=== PATIENT | female | born 1955 | race Hispanic/Latino ===

== ENCOUNTER 2018-02-16 12:25 | Outpatient (CLI) | payer BC | END 2018-02-16 12:26 | disposition home or self-care (01) | LOC: BICMAMMO 12:25 | PROVIDERS: ATTEND Student in an Organized Health Care Education/Training Program | DX: Z12.31 Encounter for screening mammogram for malignant neoplasm of breast (principal); Z80.3 Family history of malignant neoplasm of breast | CPT/HCPCS: 77063; 77067 ==

== ENCOUNTER 2018-03-16 15:34 | Outpatient (CLI) | payer OTHER | END 2018-03-16 15:35 | disposition home or self-care (01) | LOC: DTY/OP 15:34 | PROVIDERS: ATTEND Specialist | DX: Z01.818 Encounter for other preprocedural examination (principal); E66.01 Morbid (severe) obesity due to excess calories | CPT/HCPCS: 97802 ==

== ENCOUNTER 2018-05-12 12:18 | Outpatient (CLI) | payer BC ==
[2018-05-12 14:03] LABS: #Eosinphils 0.1 thou/uL (0.0-0.7); #Lymphocytes 1.3 thou/uL (1.20-3.40); #Monocytes 0.5 thou/uL (0.11-0.59); #Neutrophils 4.8 thou/uL (1.40-6.50); %Basophils 0.2 % (0.0-1.0); %Monocytes 7.2 % (0.0-10.0); %Neutrophils 71.7 % (42.0-75.0); Hemoglobin 12.5 g/dL (12.0-16.0); Mean Corpuscular HGB CONC 33.6 g/dL (32.0-36.0); Mean Corpuscular Hemoglobin 29.7 pg (27.0-31.0); Mean Corpuscular Volume 88.4 fL (78.0-98.0); Mean Platelet Volume 8.4 fL (7.4-10.4); Platelet Count 186 thou/uL (130-400); RBC Distribution Width 12.8 % (11.5-14.5); Red Blood Cell (RBC) Count 4.23 mill/uL (4.20-5.40); White Blood Cell (WBC) Count 6.6 thou/uL (4.8-10.8)
== END 2018-05-12 12:19 | disposition home or self-care (01) ==
LOC: LABBT 12:18
PROVIDERS: ATTEND Specialist
DX: Z01.818 Encounter for other preprocedural examination (principal); E66.01 Morbid (severe) obesity due to excess calories
CPT/HCPCS: 85025; 93005; 93010

== ENCOUNTER 2018-05-12 12:30 | Inpatient (IN) | payer BC ==
[2018-05-12 13:04] VITALS: BMI 40.1
[2018-05-20] MEDS ORDERED: Ketorolac Tromethamine 30 MG/ML VIAL ONE (06:28)
[2018-05-20] MEDS ORDERED: Scopolamine 1.5 mg/72 hour Patch ONE (06:28)
[2018-05-20] MEDS ORDERED: CEFAZOLIN/Water 2 GM/20 ML SYRINGE ONE (06:29)
[2018-05-20] MEDS ORDERED: Bupivacaine/Epinephrine 0.25% 30 ML VIAL ONE (06:38)
[2018-05-20] MEDS ORDERED: Midazolam HCl 2 mg/2 ml Vial ONE (06:56)
[2018-05-20] MEDS ORDERED: Fentanyl 250 MCG/5 ML VIAL ONE (06:57)
[2018-05-20] MEDS ORDERED: Heparin 5,000 UNITS/ML VIAL ONE (07:19)
[2018-05-20] MEDS ORDERED: Promethazine HCl 25 MG/ML VIAL SLOW IVP PRN (09:06)
[2018-05-20] MEDS ORDERED: Fentanyl 100 MCG/2 ML VIAL ONE (09:57)
[2018-05-20] MEDS ORDERED: Hydrocodone-Acetamin 15 ML UDCUP PO PRN (10:54)
[2018-05-20] MEDS ORDERED: Ondansetron HCl/PF 4 MG/2 ML Vial IVP PRN (10:54)
[2018-05-20] MEDS ORDERED: diphenhydrAMINE 50 MG/ML VIAL IVP PRN (10:54)
[2018-05-20] MEDS ORDERED: Dextrose 50% Abboject 50 ML SYRINGE SLOW IVP PRN (10:54)
[2018-05-20] MEDS ORDERED: hydrALAZINE 20 MG/ML VIAL SLOW IVP PRN (10:54)
[2018-05-20] MEDS ORDERED: Promethazine HCl 25 MG/ML VIAL IM PRN (10:54)
[2018-05-20] MEDS ORDERED: Dextrose 5% in Water 1,000 ML IV PRN (10:54)
[2018-05-20] MEDS: Acetaminophen 1,000 MG in Premix Bag 1 BAG IVPB SCH ×3 (11:20→23:11)
--- NOTE | 2018-05-20 11:50 | OP ---
DATE OF PROCEDURE: 05/20/2018 PREOPERATIVE DIAGNOSIS: Morbid obesity. POSTOPERATIVE DIAGNOSIS: Morbid obesity. OPERATION PERFORMED: Laparoscopic sleeve gastrectomy due to the ViSiGi device. SURGEON: Quincy Helm M.D. ANESTHESIA: General endotracheal. INDICATIONS: The patient is a 63-year-old white female. She has undergone preoperative evaluation a nd education, presents at this time for sleeve gastrectomy. DESCRIPTION OF OPERATION: Informed consent was obtained. The patient was taken to the operating braden m where general endotracheal anesthesia obtained with the patient in supine position. Abdomen was pr epped with ChloraPrep and draped in sterile fashion. Local anesthetic was infiltrated and 5 mm supra umbilical incision was created through which Veress needle was passed to the peritoneal cavity and pn eumoperitoneum established using carbon dioxide up to a pressure of 15 mmHg. A 5 mm trocar port was passed through this same incision. Laparoscopic camera was passed through this port. Under direct v ision, 4 additional ports were placed including bilateral 5 mm subcostal ports, a 12 mm right paramed smitha port and a 15 mm left paramedian port. A 5 mm epigastric incision was created through which Nathansen retractor was passed into the abdomina l cavity and used to retract the left lobe of the liver. The patient was placed into reverse [place] position. The ViSiGi device was advanced within the stomach and used to decompress this. The pylorus was ident ified and beginning 4 cm proximal to the pylorus, the omentum and vascular tissue along the greater c urvature was divided using the LigaSure in an ascending fashion up to the angle of His. All posterio r adhesions were mobilized. The short gastric vessels were carefully divided and then hemostasis was maintained using the LigaSure. Once this was completely mobilized, the ViSiGi was carefully positio dari at the level of the pylorus and placed to suction, which was clearly defining the lesser curvatur e of the stomach. The gastrectomy was then performed using a series of fires of the [place] stapler using a green load followed by a gold load and a series of blue loads until completion of the gastrectomy. The ViSiGi a long the lesser curvature was used as a size 36 bougie to guide in the gastric division. Care was ta guillaume to avoid narrowing the incisura or the gastroesophageal junction. The integrity of the staple line was then assessed by insufflating gas through the ViSiGi while irrig ating along the staple line. There was no evidence of an air leak. There was no evidence of bleedin g along the staple line. The resected stomach was then removed through the 15 mm port and the fascia was closed with 0 Vicryl suture using a GraNee needle. I then closed the 12 mm port also using the GraNee needle and 0 Vicryl suture. The Nathansen retractor was removed. All ports and instruments were removed under direct v ision. All irrigant was aspirated. Pneumoperitoneum was carefully evacuated. Quarter percent Levy ine with epinephrine was infiltrated into each port site. Skin edges approximated with 4-0 Monocryl subcuticular suture. Dermabond was placed externally. There were no complications. The patient ayaan erated the procedure well and was taken to recovery room in stable condition. FINDINGS: The patient had a normal anatomy internally. There was no scarring or inflammatory proces s. The liver was without any fatty infiltration. The operation was performed without difficulty wit h essentially no blood loss. Hemoclips were not placed along the staple line, but a couple of tiny o ozers were cauterized. The patient tolerated the procedure well and was taken to recovery in stable condition.
[2018-05-20] MEDS: D5 1/2 NS w/20 mEq KCL 1,000 ML IV SCH ×3 (12:07→21:03)
[2018-05-20] MEDS: Ketorolac Tromethamine 30 MG/ML VIAL IVP SCH ×3 (12:09→23:11)
[2018-05-20] MEDS ORDERED: Esmolol 100 MG/10 ML VIAL ONE (15:41)
[2018-05-20] MEDS ORDERED: Dexamethasone 20 MG/5 ML VIAL ONE (15:41)
[2018-05-20] MEDS ORDERED: Lidocaine 1% PF 5 ML VIAL ONE (15:41)
[2018-05-20] MEDS ORDERED: Ondansetron HCl/PF 4 MG/2 ML Vial ONE (15:41)
[2018-05-20] MEDS ORDERED: PROPOFOL 200 MG/20 ML VIAL ONE (15:41)
[2018-05-20] MEDS ORDERED: ePHEDrine/0.9% NaCl/PF SYRINGE 50 mg/10 ml ONE (15:41)
[2018-05-20] MEDS ORDERED: Glycopyrrolate 0.2 MG/ML 5 ML SYRINGE ONE (15:41)
[2018-05-20] MEDS ORDERED: Enoxaparin Sodium 40 MG/0.4 ML SYRINGE SC SCH (21:00)
[2018-05-21] MEDS: Ketorolac Tromethamine 30 MG/ML VIAL IVP SCH (05:12)
[2018-05-21] MEDS: Acetaminophen 1,000 MG in Premix Bag 1 BAG IVPB SCH (05:12)
[2018-05-21 05:54] LABS: #Lymphocytes 1.3 thou/uL (1.20-3.40); #Neutrophils 7.5 thou/uL (1.40-6.50); %Basophils 0.5 % (0.0-1.0); %Eosinophils 0.5 % (0.0-10.0); %Lymphocytes 12.8 % (21.0-51.0); %Monocytes 9.8 % (0.0-10.0); %Neutrophils 76.5 % (42.0-75.0); Hemoglobin 11.5 g/dL (12.0-16.0); Mean Corpuscular HGB CONC 31.5 g/dL (32.0-36.0); Mean Corpuscular Hemoglobin 28.9 pg (27.0-31.0); Mean Corpuscular Volume 91.6 fL (78.0-98.0); Mean Platelet Volume 8.6 fL (7.4-10.4); Platelet Count 181 thou/uL (130-400); Red Blood Cell (RBC) Count 3.97 mill/uL (4.20-5.40); White Blood Cell (WBC) Count 9.8 thou/uL (4.8-10.8)
[2018-05-21 06:06] LABS: Anion Gap 10 mmol/L (10-20); BUN (Urea Nitrogen) 7 mg/dL (9.8-20.1); Calc. Creatinine Clearance 132 mL/min (70-130); Calcium 8.6 mg/dL (7.8-10.44); Carbon Dioxide 23 mmol/L (23-31); Chloride 109 mmol/L (98-107); Estimated GFR-MDRD Greater than 90; Glucose 118 mg/dL (80-115); Potassium 4.3 mmol/L (3.5-5.1); Sodium 138 mmol/L (136-145)
[2018-05-21] MEDS ORDERED: Pantoprazole 40 MG VIAL IVP SCH (09:00)
[2018-05-21 09:05] VITALS: TEMP 97.5
[2018-05-21 11:27] VITALS: BP 114/75
[2018-05-21] MEDS ORDERED: [UNRECOGNIZED DRUG - MIXTURE] PO SCH (11:45)
[2018-05-22] MEDS ORDERED: Multivit, Chewable SF 1 TAB PO SCH (09:00)
== END 2018-05-21 11:58 | disposition home or self-care (01) | DRG 621 ==
LOC: SURG A 05-20 06:08
PROVIDERS: ADMIT Specialist; ATTEND Specialist
PROC: 0DB64Z3 Excision of Stomach, Percutaneous Endoscopic Approach, Vertical (ICD-10-PCS; principal; 2018-05-20)
DX: E66.01 Morbid (severe) obesity due to excess calories (principal); Z68.41 Body mass index [BMI] 40.0-44.9, adult
CPT/HCPCS: 36415; 80048; 85025; 88307; 88312; 94760; C9113; J0131; J1100; J1644; J1650; J1885; J2001; J2250; J2405; J2550; J2704; J3010

== ENCOUNTER 2020-09-26 13:15 | Outpatient (CLI) | payer BC ==
--- NOTE | 2020-09-26 15:09 | BD ---
BONE DENSITOMETRY USING DEXA: Date: 09/26/2020 HISTORY: Postmenopausal screening for osteoporosis. FINDINGS: Lumbar Spine: BMD (g/cm2) L1 0.756 T-Score: -2.1 Z-Score: -0.7 L2 0.881 T-Score: -1.3 Z-Score: 0.3 L3 0.803 T-Score: -2.6 Z-Score: -0.8 L4 0.783 T-Score: -2.5 Z-Score: -0.8 L1-L4 0.806 T-Score: -2.2 Z-Score: -0.6 Femoral Neck: 0.634 T-Score: -1.9 Z-Score: -0.5 Total Femur: 0.772 T-Score: -1.4 Z-Score: -0.3 The 10 year fracture risk for a major osteoporotic fracture is 9.3% and for a hip fracture is 1.1%. IMPRESSION: Osteopenia. POS: AH
== END 2020-09-26 13:16 | disposition home or self-care (01) ==
LOC: BICMAMMO 13:15
PROVIDERS: ATTEND Student in an Organized Health Care Education/Training Program
DX: Z13.820 Encounter for screening for osteoporosis (principal); M85.89 Other specified disorders of bone density and structure, multiple sites
CPT/HCPCS: 77080

== ENCOUNTER 2022-04-22 13:21 | Outpatient (CLI) | payer BC ==
[2022-04-22 15:49] LABS: #Basophils 0.1 10x3/uL (0.0-0.2); #Eosinphils 0.1 10x3/uL (0.0-0.5); #Monocytes 0.6 10x3/uL (0.0-1.1); #Neutrophils 4.1 10x3/uL (1.5-8.4); %Basophils 0.8 % (0.0-2.0); %Eosinophils 0.9 % (0.0-6.0); %Lymphocytes 26.4 % (18.0-47.0); %Neutrophils 62.6 % (40.0-75.0); Hemoglobin 11.7 g/dL (12.0-15.5); Mean Corpuscular HGB CONC 32.3 g/dL (32.0-36.0); Mean Corpuscular Hemoglobin 29.6 pg (27.0-33.0); Mean Corpuscular Volume 91.6 fl (81.6-98.3); Mean Platelet Volume 11.5 fl (7.4-10.4); Platelet Count 205 10x3/uL (150-450); RBC Distribution Width 13.5 % (11.5-14.5); Red Blood Cell (RBC) Count 3.95 10x6/uL (3.90-5.03); White Blood Cell (WBC) Count 6.5 10x3/uL (3.5-10.5)
[2022-04-22 23:40] LABS: SARS-CoV-2 PCR by NAA Not Detected (NotDetected)
== END 2022-04-22 13:22 | disposition home or self-care (01) ==
LOC: LABBT 13:21
PROVIDERS: ATTEND Orthopaedic Surgery Hand Surgery
DX: Z01.818 Encounter for other preprocedural examination (principal); G56.01 Carpal tunnel syndrome, right upper limb; M65.341 Trigger finger, right ring finger; M65.321 Trigger finger, right index finger; Z20.822 Contact with and (suspected) exposure to COVID-19
CPT/HCPCS: 85025; 93005; 93010; U0003; U0005

== ENCOUNTER 2022-04-25 05:55 | Day surgery (SDC) | payer BC ==
[2022-04-23 12:16] VITALS: BMI 34.9
[2022-04-25] MEDS ORDERED: Neomycin-Polymyxin 1 ML AMP ONE (06:18)
[2022-04-25] MEDS ORDERED: Betamet Acet/Betamet Na Ph 30 MG/5 ML VIAL ONE (06:18)
[2022-04-25] MEDS ORDERED: Bupivacaine PF 0.5% 30 ML VIAL ONE (06:18)
[2022-04-25] MEDS ORDERED: Bacitracin Zinc Ointment 30 gm TUBE ONE (06:18)
[2022-04-25] MEDS ORDERED: fentaNYL Citrate/PF 100 MCG/2 ML SYRINGE ONE (06:58)
[2022-04-25] MEDS ORDERED: Sodium Chloride 0.9% 100 ML ONE (07:11)
[2022-04-25] MEDS ORDERED: CEFAZOLIN 2 GM VIAL ONE (07:11)
[2022-04-25] MEDS ORDERED: Dexamethasone 20 MG/5 ML VIAL ONE (07:56)
[2022-04-25] MEDS ORDERED: PROPOFOL 200 MG/20 ML VIAL ONE (07:56)
[2022-04-25] MEDS ORDERED: Ketorolac Tromethamine 30 MG/ML VIAL ONE (07:56)
[2022-04-25] MEDS ORDERED: Lidocaine 1% PF 5 ML VIAL ONE (07:56)
[2022-04-25] MEDS ORDERED: Ondansetron PF 4 MG/2 ML Vial ONE (07:56)
== END 2022-04-25 10:24 | disposition home or self-care (01) ==
LOC: SDC 05:55
PROVIDERS: ATTEND Orthopaedic Surgery Hand Surgery
DX: G56.01 Carpal tunnel syndrome, right upper limb (principal); M65.321 Trigger finger, right index finger; M65.341 Trigger finger, right ring finger
CPT/HCPCS: J0702; J1100; J1885; J2405; J2704; J3490; S0020

== ENCOUNTER 2022-10-09 15:02 | Outpatient (CLI) | payer BC | END 2022-10-09 15:03 | disposition home or self-care (01) | LOC: BICMAMMO 15:02 | PROVIDERS: ATTEND Student in an Organized Health Care Education/Training Program | DX: Z13.820 Encounter for screening for osteoporosis (principal); M85.89 Other specified disorders of bone density and structure, multiple sites | CPT/HCPCS: 77080 ==